=== PATIENT | female | born 1990 | race Caucasian/White ===

== ENCOUNTER → 2024-07-14 15:10 | Outpatient (BNVA) | payer MEDICAID, SELFPAY | PROVIDERS: PCP Nurse Practitioner Family; Visit Provider Podiatrist Foot & Ankle Surgery | DX: M25.571 Pain in right ankle and joints of right foot (principal); M79.671 Pain in right foot; Q66.71 Congenital pes cavus, right foot; Q66.72 Congenital pes cavus, left foot; G60.0 Hereditary motor and sensory neuropathy | CPT/HCPCS: 73610; 73620; 99203 ==